=== PATIENT | female | born 2000 | race Caucasian/White ===

== ENCOUNTER 2019-10-03 02:30 | Emergency (ER) | payer SELFPAY ==
[~2019-10-03] VITALS: Ht 167.6 cm; Wt 81.6 kg
--- NOTE | 2019-10-03 02:30 | NUR ---
PT BIB [facility], PREBOOK. TAKEN TO CHAIR A
[2019-10-03 02:32] VITALS: BP 136/86
[2019-10-03] MEDS ORDERED: IBUPROFEN 600 MG TAB PO ONE (02:45)
--- NOTE | 2019-10-03 03:05 | NUR ---
PT TAKEN TO RAD VIA W/C.
--- NOTE | 2019-10-03 03:10 | NUR ---
PT RETURN FROM RADIOLOGY
[2019-10-03 03:33] VITALS: BP 136/86
--- NOTE | 2019-10-03 03:33 | NUR ---
Patient discharged with v/s stable. Written and verbal after care instructions given and explained. Patient verbalized understanding. Police with in custody. All questions addressed prior to discharge. Advised to follow up with PMD.
== END 2019-10-03 03:33 ==
LOC: MED 02:30
DX: S93.601A Unspecified sprain of right foot, initial encounter (principal); Z02.89 Encounter for other administrative examinations; V89.2XXA Person injured in unspecified motor-vehicle accident, traffic, initial encounter; Y93.89 Activity, other specified; Y92.89 Other specified places as the place of occurrence of the external cause; Y99.8 Other external cause status
CPT/HCPCS: 73630; 99283